=== PATIENT | female | born 1950 | race Caucasian/White ===

== ENCOUNTER 2020-07-23 15:52 | Outpatient (CLI) | payer MEDICARE | END 2020-07-23 15:53 | disposition home or self-care (01) | LOC: CSHRAD 15:52 | PROVIDERS: ATTEND Internal Medicine Rheumatology | DX: M54.5 Low back pain (principal); R07.81 Pleurodynia; Z79.899 Other long term (current) drug therapy; M47.816 Spondylosis without myelopathy or radiculopathy, lumbar region | CPT/HCPCS: 71110; 72100 ==